=== PATIENT | female | born 1960 | race Two or more races ===

== ENCOUNTER 2019-01-17 12:23 | Emergency (ER) | payer OTHER, MEDICAID ==
[~2019-01-17] VITALS: Ht 162.6 cm; Wt 79.4 kg
[~2019-01-17 12:23] MED LIST: ASPI-264 PO; ATOR10TA PO; CITA20TA3 PO; FER325T PO; LISI-275 PO; OMEP20TA PO; RANO500T2 PO; TEMA30CA PO; TOPI100T29 PO; [UNRECOGNIZED DRUG - CODE] SC
[2019-01-17 12:52] VITALS: BP 128/79
== END 2019-01-17 14:50 | disposition home or self-care (01) ==
LOC: ER 12:30
DX: M72.2 Plantar fascial fibromatosis (principal); Z76.0 Encounter for issue of repeat prescription; K21.9 Gastro-esophageal reflux disease without esophagitis; I25.2 Old myocardial infarction; I10 Essential (primary) hypertension; E78.5 Hyperlipidemia, unspecified
CPT/HCPCS: 82962

== ENCOUNTER 2019-04-19 10:18 | Inpatient (IN) | payer OTHER, MEDICAID ==
[~2019-04-19] VITALS: Ht 162.6 cm; Wt 90.0 kg
[2019-04-19 10:53] LABS: Basophils # (auto) 0 10 ^3/uL (0-0.2); Basophils % (auto) 0.3 % (0.0-2.0); Eosinophils # (auto) 0.1 10 ^3/uL (0-0.8); Hematocrit 46.2 % (36.0-46.0); Hemoglobin 15.8 g/dL (12.2-16.2); Lymphocytes # (auto) 2.1 10 ^3/uL (0.4-5.4); Lymphocytes % (auto) 25.1 % (10.0-50.0); Mean Corpuscular Hemoglobin 31.7 pg (28.0-32.0); Mean Corpuscular Hgb Conc. 34.2 g/dL (32.0-36.0); Mean Corpuscular Volume 92.8 fL (80.0-100.0); Monocytes # (auto) 0.8 10 ^3/uL (0-1.3); Monocytes % (auto) 9.5 % (0.0-12.0); Neutrophils # (auto) 5.3 10 ^3/uL (1.6-8.6); Neutrophils % (auto) 64.1 % (37.0-80.0); Nucleated Red Blood Cells % 0.1 %; Platelet Count (auto) 148 10^3/uL (140-450); Red Blood Cells 4.98 10^6/uL (4.0-5.20); Red Cell Distribution Width 14.5 % (11.8-14.3); White Blood Cell 8.2 10^3/uL (4.4-10.8)
[2019-04-19 11:13] LABS: Alanine Aminotransferase 33 U/L (13-56); Albumin 3.7 g/dL (3.4-5.0); Anion Gap 4 (5-15); Aspartate Aminotransferase 22 U/L (15-37); Blood Urea Nitrogen 10 mg/dL (7-18); Calcium 8.8 mg/dL (8.5-10.1); Carbon Dioxide 20 mmol/L (21-32); Chloride 118 mmol/L (98-107); Glucose 136 mg/dL (74-106); Potassium 3.6 mmol/L (3.5-5.1); Sodium 142 mmol/L (136-145)
[2019-04-19 11:18] LABS: Alkaline Phosphatase 133 U/L (45-117); BUN/Creatinine Ratio 16.4; Bilirubin, Total 0.2 mg/dL (0.2-1.0); GFR African American 130 mL/min; GFR Non-African American 107 mL/min; Total Protein 7.6 g/dL (6.4-8.2)
[2019-04-19] MEDS ORDERED: PROMETHAZINE HCL 25 MG/ML 1ML IV PRN (12:00)
[2019-04-19] MEDS ORDERED: DEXTROSE (50%) 50ML SYRG IV PRN (12:00)
[2019-04-19] MEDS ORDERED: ASPirin 81 mg TAB PO ONE (12:00)
[2019-04-19] MEDS ORDERED: LACTULOSE 20Gm/30ML SOLN PO PRN (12:00)
[2019-04-19] MEDS ORDERED: NITROGLYCERIN 0.4 MG SL TAB SL PRN (12:00)
[2019-04-19] MEDS ORDERED: MORPHINE SULF INJ 2 MG/ML SYRINGE 1ML IV PRN (12:00)
[2019-04-19] MEDS ORDERED: LABETALOL HCL 5 MG/ML ML 20ML VIAL IV PRN (12:00)
[2019-04-19] MEDS ORDERED: TEMAZEPAM 15 MG CAP PO PRN (12:15)
[2019-04-19] MEDS ORDERED: ASPirin-EC 325mg tab PO ONE (12:15)
[2019-04-19] MEDS ORDERED: LISINOPRIL 5 MG TAB PO ONE (12:15)
[2019-04-19] MEDS ORDERED: RANOLAZINE ER 500 MG TAB PO ONE (12:15)
[2019-04-19] MEDS ORDERED: CITALOPRAM HYDROBR 20 MG TAB PO ONE (12:15)
[2019-04-19] MEDS ORDERED: ENOXAPARIN SOD 40 MG/0.4 ML SYRINGE SC ONE (12:15)
[2019-04-19] MEDS ORDERED: PANTOPRAZOLE 40 MG TAB PO ONE (12:15)
[2019-04-19] MEDS: SODIUM CHLORIDE 0.9% 1,000 ML IV SCH ×2 (13:51→23:49)
[2019-04-19] MEDS: TOPIRAMATE 100 MG TAB PO SCH ×2 (14:00→22:12)
[2019-04-19] MEDS: FERROUS SULFATE 325 MG TAB PO SCH ×2 (14:00→22:12)
[2019-04-19] MEDS ORDERED: PRO125RS PO (15:47)
[2019-04-19] MEDS ORDERED: HYDR-4924 PO (15:47)
[2019-04-19] MEDS ORDERED: SITA50TA PO (15:47)
[2019-04-19] MEDS ORDERED: PERCOT PO (15:47)
[2019-04-19] MEDS ORDERED: VITA400T4 PO (15:47)
[2019-04-19] MEDS ORDERED: ROSU40TA PO (15:47)
[2019-04-19] MEDS ORDERED: CLOP75TA28 PO (15:47)
[2019-04-19] MEDS ORDERED: CYAN1TAB14 PO (15:47)
[2019-04-19] MEDS ORDERED: TOPI100T68 PO (15:47)
[2019-04-19] MEDS ORDERED: CHOL20007 PO (15:47)
[2019-04-19 17:03] VITALS: BP 96/60
[2019-04-19] MEDS: ACCU-CHEK COMFORT CURVE STRIP VI SCH ×2 (17:41→22:13)
[2019-04-19] MEDS: traMADol HCL 50 MG TAB PO PRN (20:59)
[2019-04-19 21:00] VITALS: BP 93/59
[2019-04-19] MEDS: RANOLAZINE ER 500 MG TAB PO SCH (22:12)
[2019-04-19 22:31] LABS: Urine Bacteria NONE SEEN /hpf (None Seen); Urine Blood Negative /uL (Negative); Urine Mucus FEW (None Seen); Urine Specific Gravity 1.024 (1.001-1.035); Urine WBC 10 /hpf (0 - 5)
[2019-04-19 22:43] LABS: Alcohol, Urine < 3.0 mg/dL (0-5); Amphetamine Screen, Urine NEGATIVE (NEGATIVE); Barbiturate Scree,Urine NEGATIVE (NEGATIVE); Benzodiazephine Screen, Urine NEGATIVE (NEGATIVE); Cannabinoid Screen, Urine NEGATIVE (NEGATIVE); Cocaine Screen, Urine NEGATIVE (NEGATIVE); Opiate Scree,Urine NEGATIVE (NEGATIVE); Phencyclidine Screen, Urine NEGATIVE (NEGATIVE)
[2019-04-20 04:30] VITALS: BP 92/59
[2019-04-20] MEDS: TOPIRAMATE 100 MG TAB PO SCH ×3 (06:34→21:45)
[2019-04-20] MEDS: ACCU-CHEK COMFORT CURVE STRIP VI SCH ×4 (06:34→22:04)
[2019-04-20] MEDS: FERROUS SULFATE 325 MG TAB PO SCH ×3 (06:35→21:44)
[2019-04-20 07:30] VITALS: BP 124/74
[2019-04-20 08:00] VITALS: BP 93/62
[2019-04-20] MEDS: LISINOPRIL 5 MG TAB PO SCH (10:00)
[2019-04-20] MEDS: ASPirin-EC 325mg tab PO SCH (10:00)
[2019-04-20] MEDS: RANOLAZINE ER 500 MG TAB PO SCH ×2 (10:31→21:44)
[2019-04-20] MEDS: ENOXAPARIN SOD 40 MG/0.4 ML SYRINGE SC SCH (10:31)
[2019-04-20] MEDS: PANTOPRAZOLE 40 MG TAB PO SCH (10:32)
[2019-04-20] MEDS: traMADol HCL 50 MG TAB PO PRN (10:33)
[2019-04-20] MEDS: CITALOPRAM HYDROBR 20 MG TAB PO SCH (10:33)
[2019-04-20 13:00] VITALS: BP 105/71
[2019-04-20] MEDS: SODIUM CHLORIDE 0.9% 1,000 ML IV SCH (13:01)
[2019-04-20] MEDS ORDERED: DEXTROSE (50%) 50ML SYRG IV PRN (16:00)
[2019-04-20 17:00] VITALS: BP 99/66
[2019-04-20] MEDS: InsuLIN REG 1unit/0.01ml Soln (100units/ml) SC SCH ×2 (17:00→22:00)
[2019-04-20 20:00] VITALS: BP 106/72
[2019-04-21] MEDS: SODIUM CHLORIDE 0.9% 1,000 ML IV SCH ×2 (01:17→13:47)
[2019-04-21 05:00] VITALS: BP 96/50
[2019-04-21 06:07] LABS: Basophils # (auto) 0 10 ^3/uL (0-0.2); Basophils % (auto) 0.2 % (0.0-2.0); Eosinophils # (auto) 0.1 10 ^3/uL (0-0.8); Hematocrit 40.2 % (36.0-46.0); Hemoglobin 14.2 g/dL (12.2-16.2); Lymphocytes # (auto) 1.8 10 ^3/uL (0.4-5.4); Lymphocytes % (auto) 20.3 % (10.0-50.0); Mean Corpuscular Hemoglobin 32.7 pg (28.0-32.0); Mean Corpuscular Hgb Conc. 35.3 g/dL (32.0-36.0); Mean Corpuscular Volume 92.8 fL (80.0-100.0); Monocytes # (auto) 0.9 10 ^3/uL (0-1.3); Monocytes % (auto) 9.8 % (0.0-12.0); Neutrophils # (auto) 6.2 10 ^3/uL (1.6-8.6); Neutrophils % (auto) 68.7 % (37.0-80.0); Nucleated Red Blood Cells % 0.2 %; Platelet Count (auto) 126 10^3/uL (140-450); Red Blood Cells 4.33 10^6/uL (4.0-5.20); Red Cell Distribution Width 14.2 % (11.8-14.3)
[2019-04-21 06:18] LABS: Calcium 7.8 mg/dL (8.5-10.1); Potassium 3.5 mmol/L (3.5-5.1)
[2019-04-21] MEDS: FERROUS SULFATE 325 MG TAB PO SCH ×2 (06:46→14:00)
[2019-04-21] MEDS: TOPIRAMATE 100 MG TAB PO SCH ×2 (06:46→14:00)
[2019-04-21] MEDS: InsuLIN REG 1unit/0.01ml Soln (100units/ml) SC SCH ×2 (06:46→11:30)
[2019-04-21] MEDS: ACCU-CHEK COMFORT CURVE STRIP VI SCH ×2 (06:46→12:42)
[2019-04-21 07:30] VITALS: BP 124/74
[2019-04-21 08:31] VITALS: BP 100/69
[2019-04-21] MEDS: CITALOPRAM HYDROBR 20 MG TAB PO SCH (10:00)
[2019-04-21] MEDS: LISINOPRIL 5 MG TAB PO SCH (10:00)
[2019-04-21] MEDS: ASPirin-EC 325mg tab PO SCH (10:00)
[2019-04-21] MEDS: PANTOPRAZOLE 40 MG TAB PO SCH (10:44)
[2019-04-21] MEDS: ENOXAPARIN SOD 40 MG/0.4 ML SYRINGE SC SCH (10:47)
[2019-04-21] MEDS: RANOLAZINE ER 500 MG TAB PO SCH (10:47)
[2019-04-21 12:41] VITALS: BP 107/70
[2019-04-21 13:30] VITALS: BP 107/70
== END 2019-04-21 15:01 | disposition home or self-care (01) | DRG 65 ==
LOC: ER 10:18 → TELE 10:19 → TELE-WESTW 12:29
PROVIDERS: ADMIT Internal Medicine; ATTEND Internal Medicine
DX: I63.9 Cerebral infarction, unspecified (principal); G81.91 Hemiplegia, unspecified affecting right dominant side; E66.9 Obesity, unspecified; E11.9 Type 2 diabetes mellitus without complications; E78.5 Hyperlipidemia, unspecified; F17.210 Nicotine dependence, cigarettes, uncomplicated; D63.8 Anemia in other chronic diseases classified elsewhere; I10 Essential (primary) hypertension; I25.10 Atherosclerotic heart disease of native coronary artery without angina pectoris; F32.9 Major depressive disorder, single episode, unspecified; K21.9 Gastro-esophageal reflux disease without esophagitis; F41.9 Anxiety disorder, unspecified; I25.2 Old myocardial infarction; Z82.3 Family history of stroke; Z82.49 Family history of ischemic heart disease and other diseases of the circulatory system; Z86.73 Personal history of transient ischemic attack (TIA), and cerebral infarction without residual deficits; Z95.5 Presence of coronary angioplasty implant and graft; Z88.1 Allergy status to other antibiotic agents; Z88.5 Allergy status to narcotic agent; Z88.8 Allergy status to other drugs, medicaments and biological substances; Z90.49 Acquired absence of other specified parts of digestive tract; Z68.34 Body mass index [BMI] 34.0-34.9, adult
CPT/HCPCS: 36415; 70450; 71046; 80048; 80053; 80307; 81001; 82550; 82962; 83036; 84484; 85025; 85652; 93005; 93886; 96372; 96374; 97163; G0378

== ENCOUNTER 2019-10-25 11:45 | Emergency (ER) | payer OTHER, MEDICAID ==
[~2019-10-25] VITALS: Ht 162.6 cm; Wt 82.6 kg
[~2019-10-25 11:45] MED LIST changes: -ASPI-264 PO; -ATOR10TA PO; +CHOL20007 PO; -CITA20TA3 PO; +CLOP75TA28 PO; +CYAN1TAB14 PO; +HYDR-4924 PO; -LISI-275 PO; -OMEP20TA PO; +PERCOT PO; +PRO125RS PO; -RANO500T2 PO; +ROSU40TA PO; +SITA50TA PO; -TEMA30CA PO; +TOPI100T68 PO; +VITA400T4 PO; -[UNRECOGNIZED DRUG - CODE] SC
[2019-10-25] MEDS ORDERED: SODIUM CHLORIDE 0.9% 1,000 ML IV ONE ×2 (12:23)
[2019-10-25] MEDS ORDERED: MORPHINE SULFATE 4 MG/ML SYR/VIAL IV ONE (12:30)
[2019-10-25] MEDS ORDERED: ONDANSETRON HCL 4 MG/2 ML VIAL IV ONE (12:30)
[2019-10-25 12:59] LABS: Basophils # (auto) 0 10 ^3/uL (0-0.2); Basophils % (auto) 0.1 % (0.0-2.0); Eosinophils # (auto) 0 10 ^3/uL (0-0.8); Hematocrit 45.5 % (36.0-46.0); Hemoglobin 14.9 g/dL (12.2-16.2); Lymphocytes % (auto) 28.3 % (10.0-50.0); Mean Corpuscular Hemoglobin 30.5 pg (28.0-32.0); Mean Corpuscular Hgb Conc. 32.9 g/dL (32.0-36.0); Mean Corpuscular Volume 92.9 fL (80.0-100.0); Monocytes # (auto) 0.6 10 ^3/uL (0-1.3); Monocytes % (auto) 8.4 % (0.0-12.0); Neutrophils # (auto) 4.5 10 ^3/uL (1.6-8.6); Neutrophils % (auto) 63.2 % (37.0-80.0); Nucleated Red Blood Cells % 0.1 %; Platelet Count (auto) 192 10^3/uL (140-450); Red Blood Cells 4.89 10^6/uL (4.0-5.20); Red Cell Distribution Width 13.8 % (11.8-14.3); White Blood Cell 7.1 10^3/uL (4.4-10.8)
[2019-10-25] MEDS ORDERED: IOHEXOL 300 MG/ML 100ML BOTTLE IJ ONE (13:08)
[2019-10-25 13:15] LABS: Albumin 3.5 g/dL (3.4-5.0); Amylase 41 U/L (25-115); Anion Gap 9 (5-15); Blood Urea Nitrogen 8 mg/dL (7-18); Calcium 8.6 mg/dL (8.5-10.1); Carbon Dioxide 19 mmol/L (21-32); Chloride 112 mmol/L (98-107); Glucose 165 mg/dL (74-106); Lipase 122 U/L (73-393); Potassium 3.2 mmol/L (3.5-5.1); Sodium 140 mmol/L (136-145)
[2019-10-25 13:20] LABS: Alanine Aminotransferase 88 U/L (13-56); Alkaline Phosphatase 140 U/L (45-117); Aspartate Aminotransferase 62 U/L (15-37); BUN/Creatinine Ratio 12.5; Bilirubin, Total 0.3 mg/dL (0.2-1.0); GFR African American 122 mL/min; GFR Non-African American 101 mL/min; Total Protein 7.7 g/dL (6.4-8.2)
[2019-10-25] MEDS ORDERED: POTASSIUM EFFERVESENT TAB 25 MEQ PO ONE (14:15)
[2019-10-25 15:04] LABS: Urine Bacteria NONE SEEN /hpf (None Seen); Urine Blood Negative /uL (Negative); Urine Mucus FEW (None Seen); Urine WBC 1 /hpf (0 - 5)
[2019-10-25 15:05] VITALS: BP 102/61
== END 2019-10-25 15:17 | disposition home or self-care (01) ==
LOC: ER 11:45
DX: E87.6 Hypokalemia (principal); K57.30 Diverticulosis of large intestine without perforation or abscess without bleeding; J40 Bronchitis, not specified as acute or chronic; I10 Essential (primary) hypertension; E11.9 Type 2 diabetes mellitus without complications; F41.9 Anxiety disorder, unspecified; F17.210 Nicotine dependence, cigarettes, uncomplicated; F32.9 Major depressive disorder, single episode, unspecified; K21.9 Gastro-esophageal reflux disease without esophagitis; E78.5 Hyperlipidemia, unspecified; I25.2 Old myocardial infarction; Z86.73 Personal history of transient ischemic attack (TIA), and cerebral infarction without residual deficits; Z90.49 Acquired absence of other specified parts of digestive tract; Z90.89 Acquired absence of other organs; Z98.890 Other specified postprocedural states; Z88.6 Allergy status to analgesic agent; Z88.5 Allergy status to narcotic agent; Z88.8 Allergy status to other drugs, medicaments and biological substances; Z79.899 Other long term (current) drug therapy
CPT/HCPCS: 36415; 71045; 74177; 80053; 81001; 82150; 83690; 84484; 85025; 93005; 96361; 96374; 96375; 99285; J2270; J2405; J7030; Q9967

== ENCOUNTER 2022-08-05 19:19 | Emergency (ER) | payer OTHER, MEDICAID ==
[~2022-08-05] VITALS: Ht 162.6 cm; Wt 84.1 kg
[~2022-08-05 19:19] MED LIST changes: -ROSU40TA PO; +ROSU40TA81 PO
[2022-08-05 20:01] LABS: Urine Bacteria NONE SEEN /hpf (None Seen); Urine Blood Negative /uL (Negative); Urine Specific Gravity 1.005 (1.001-1.035); Urine WBC 2 /hpf (0 - 5)
[2022-08-05 22:39] VITALS: BP 119/77
[2022-08-06] MEDS ORDERED: IBUP-1454 PO (00:11)
[2022-08-06] MEDS ORDERED: CLIN2CRE7 VG (00:11)
[2022-08-06] MEDS ORDERED: CEPH500C PO (00:11)
[2022-08-06] MEDS ORDERED: HYDR-4902 PO (00:11)
[2022-08-06] MEDS ORDERED: MET500T PO (00:11)
[2022-08-06] MEDS ORDERED: IBUPROFEN 600 MG TAB PO ONE (00:15)
== END 2022-08-06 00:38 | disposition home or self-care (01) ==
LOC: ER 19:19
DX: N76.0 Acute vaginitis (principal); K21.9 Gastro-esophageal reflux disease without esophagitis; E78.5 Hyperlipidemia, unspecified; I10 Essential (primary) hypertension; F17.210 Nicotine dependence, cigarettes, uncomplicated; Z90.49 Acquired absence of other specified parts of digestive tract; Z86.73 Personal history of transient ischemic attack (TIA), and cerebral infarction without residual deficits; Z88.6 Allergy status to analgesic agent
CPT/HCPCS: 81001; 87210

== ENCOUNTER 2023-10-10 22:49 | Inpatient (IN) | payer OTHER ==
[~2023-10-10] VITALS: Ht 162.6 cm; Wt 79.0 kg
[~2023-10-10 22:49] MED LIST changes: +CEPH500C PO; +CLIN2CRE7 VG; +HYDR-4902 PO; +IBUP-1454 PO; +MET500T PO
[2023-10-10 23:15] LABS: Basophils # (auto) 0.2 10 ^3/uL (0-0.2); Basophils % (auto) 1.9 % (0.0-2.0); Eosinophils # (auto) 0.1 10 ^3/uL (0-0.8); Eosinophils % (auto) 1.2 % (0.0-7.0); Hematocrit 45.8 % (36.0-46.0); Hemoglobin 15.9 g/dL (12.2-16.2); Lymphocytes # (auto) 2.2 10 ^3/uL (0.4-5.4); Lymphocytes % (auto) 24.5 % (10.0-50.0); Mean Corpuscular Hgb Conc. 34.7 g/dL (32.0-36.0); Monocytes # (auto) 0.8 10 ^3/uL (0-1.3); Monocytes % (auto) 8.6 % (0.0-12.0); Neutrophils # (auto) 5.9 10 ^3/uL (1.6-8.6); Neutrophils % (auto) 63.8 % (37.0-80.0); Nucleated Red Blood Cells % 0.1 %; Platelet Count (auto) 139 10^3/uL (140-450); Red Blood Cells 4.97 10^6/uL (4.0-5.20); Red Cell Distribution Width 14.7 % (11.8-14.3); White Blood Cell 9.2 10^3/uL (4.4-10.8)
[2023-10-10 23:30] LABS: Chloride 113 mmol/L (98-107); Potassium 3.1 mmol/L (3.5-5.1); Sodium 140 mmol/L (136-145)
[2023-10-10 23:31] LABS: Anion Gap 12 (5-15); Calcium 9.4 mg/dL (8.7-10.4); Carbon Dioxide 15 mmol/L (20-30)
[2023-10-10 23:36] LABS: Blood Urea Nitrogen 8 mg/dL (9-23); Glucose 125 mg/dL (74-106)
[2023-10-11 03:11] LABS: Urine Bacteria None Seen /hpf (None Seen)
[2023-10-11 03:38] LABS: Urine Blood Negative /uL (Negative); Urine Clarity Turbid (Clear); Urine Color Yellow (Yellow); Urine Mucus MODERATE (None Seen); Urine Protein, UAD TRACE (Negative); Urine Specific Gravity 1.017 (1.001-1.035); Urine Urobilinogen 2 mg/dL (Negative); Urine WBC 8 /hpf (0 - 5); Urine pH 5.5 (5.0-9.0)
[2023-10-11 07:55] VITALS: PULSE 63; RESP 16; O2SAT 98
[2023-10-11] MEDS: IOHEXOL 350 MG/ML 100ML IJ ONE (09:55)
[2023-10-11] MEDS ORDERED: NITROGLYCERIN 0.4 MG SL TAB SL PRN (14:15)
[2023-10-11 15:24] LABS: Magnesium 2.3 mg/dL (1.6-2.6)
[2023-10-11 15:25] LABS: Phosphorus 3.7 mg/dL (2.4-5.1)
[2023-10-11] MEDS: ENOXAPARIN SOD 40 MG/0.4 ML SYRINGE SC SCH (15:45)
[2023-10-11 20:21] VITALS: PULSE 70; RESP 16; O2SAT 98
[2023-10-11 21:36] VITALS: BP 95/61; PULSE 66; RESP 17; TEMP 97.5; O2SAT 94
[2023-10-11] MEDS: TOPIRAMATE 100 MG TAB PO SCH (22:26)
[2023-10-12] VITALS (8 sets, daily range): BP systolic 85–98; BP diastolic 54–64; PULSE 64–71; RESP 15–20; TEMP 97.4–98.2; O2SAT 94–96
[2023-10-12] MEDS ORDERED: GABA-1308 PO (01:49)
[2023-10-12 07:00] LABS: Basophils # (auto) 0 10 ^3/uL (0-0.2); Basophils % (auto) 0.3 % (0.0-2.0); Eosinophils # (auto) 0.1 10 ^3/uL (0-0.8); Eosinophils % (auto) 0.9 % (0.0-7.0); Hematocrit 42.4 % (36.0-46.0); Hemoglobin 14.6 g/dL (12.2-16.2); Lymphocytes # (auto) 2.5 10 ^3/uL (0.4-5.4); Lymphocytes % (auto) 29.8 % (10.0-50.0); Mean Corpuscular Hemoglobin 31.8 pg (28.0-32.0); Mean Corpuscular Hgb Conc. 34.4 g/dL (32.0-36.0); Mean Corpuscular Volume 92.6 fL (80.0-100.0); Monocytes # (auto) 0.9 10 ^3/uL (0-1.3); Monocytes % (auto) 10.8 % (0.0-12.0); Neutrophils % (auto) 58.2 % (37.0-80.0); Nucleated Red Blood Cells % 0.1 %; Platelet Count (auto) 129 10^3/uL (140-450); Red Blood Cells 4.59 10^6/uL (4.0-5.20); Red Cell Distribution Width 14.7 % (11.8-14.3); White Blood Cell 8.5 10^3/uL (4.4-10.8)
[2023-10-12] MEDS: POTASSIUM CHL 20 Meq TABLET PO ONE (07:05)
[2023-10-12 07:15] LABS: Alanine Aminotransferase 25 U/L (7-40); Albumin 3.7 g/dL (3.2-4.8); Alkaline Phosphatase 84 U/L (46-116); Anion Gap 7 (5-15); Aspartate Aminotransferase 20 U/L (13-40); Blood Urea Nitrogen 9 mg/dL (9-23); Calcium 9.2 mg/dL (8.7-10.4); Carbon Dioxide 22 mmol/L (20-30); Chloride 114 mmol/L (98-107); Glucose 100 mg/dL (74-106); LDL Cholesterol 37 mg/dL (< 100); Potassium 3.3 mmol/L (3.5-5.1); Sodium 143 mmol/L (136-145); Triglycerides 93 mg/dL (< 150)
[2023-10-12 07:16] LABS: Bilirubin, Total 0.4 mg/dL (0.2-1.0); Cholesterol 87 mg/dL (< 200); HDL Cholesterol 33 mg/dL (40-59); Total Protein 5.8 g/dL (5.7-8.2)
[2023-10-12] MEDS: ATORVASTATIN 20 MG TAB PO SCH (10:00)
[2023-10-12] MEDS: ASPirin 81 mg TAB PO SCH (10:00)
[2023-10-12] MEDS: CLOPIDOGREL BISULFATE 75 MG TAB PO SCH (10:25)
[2023-10-12] MEDS ORDERED: FAMO20TA10 PO (10:28)
[2023-10-13] VITALS (7 sets, daily range): BP systolic 82–95; BP diastolic 52–63; PULSE 63–78; RESP 13–19; TEMP 97–99; O2SAT 92–98
[2023-10-13 07:15] LABS: Chloride 115 mmol/L (98-107); Potassium 3.5 mmol/L (3.5-5.1); Sodium 142 mmol/L (136-145)
[2023-10-13 07:16] LABS: Anion Gap 6 (5-15); Carbon Dioxide 21 mmol/L (20-30)
[2023-10-13 07:17] LABS: Calcium 9.3 mg/dL (8.7-10.4)
[2023-10-13 07:22] LABS: BUN/Creatinine Ratio 11.8 (10.0-20.0); Blood Urea Nitrogen 6 mg/dL (9-23); Glucose 123 mg/dL (74-106)
[2023-10-13 08:06] LABS: RPR Non Reactive (Non Reactive)
[2023-10-13] MEDS ORDERED: ATORVASTATIN 20 MG TAB PO SCH (22:00)
== END 2023-10-13 19:55 | disposition home or self-care (01) | DRG 69 ==
LOC: ER 22:49 → OVERFLOW 10-11 14:19 → EAST 10-11 14:19
PROVIDERS: ADMIT Nurse Practitioner Family; ATTEND Nurse Practitioner Acute Care
DX: G45.9 Transient cerebral ischemic attack, unspecified (principal); I16.9 Hypertensive crisis, unspecified; I25.10 Atherosclerotic heart disease of native coronary artery without angina pectoris; I10 Essential (primary) hypertension; F32.A Depression, unspecified; E78.5 Hyperlipidemia, unspecified; E11.65 Type 2 diabetes mellitus with hyperglycemia; F41.9 Anxiety disorder, unspecified; E66.9 Obesity, unspecified; F17.210 Nicotine dependence, cigarettes, uncomplicated; E87.6 Hypokalemia; K21.9 Gastro-esophageal reflux disease without esophagitis; H53.9 Unspecified visual disturbance; Z88.6 Allergy status to analgesic agent; Z90.49 Acquired absence of other specified parts of digestive tract; Z95.5 Presence of coronary angioplasty implant and graft; Z68.29 Body mass index [BMI] 29.0-29.9, adult; Z86.73 Personal history of transient ischemic attack (TIA), and cerebral infarction without residual deficits; Z79.02 Long term (current) use of antithrombotics/antiplatelets; W18.39XA Other fall on same level, initial encounter; Y93.89 Activity, other specified; Y92.89 Other specified places as the place of occurrence of the external cause; Y99.8 Other external cause status
CPT/HCPCS: 36415; 70450; 70496; 70551; 71045; 80048; 80053; 80061; 81001; 83735; 83880; 84100; 84443; 84484; 85025; 86592; 93005; 93306; 97110; 97116; 97163; 97530; G0378